=== PATIENT | female | born 1990 | race African-American/Black ===

== ENCOUNTER 2016-11-11 17:41 | Emergency (ER) | payer OTHER ==
[~2016-11-11] VITALS: Ht 170.2 cm; Wt 54.5 kg
[2016-11-11] MEDS ORDERED: CefTRIAXone SODIUM 1 GM/VIAL IM ONE (20:30)
[2016-11-11] MEDS ORDERED: AZITHROMYCIN 250 MG TABLET PO ONE (20:30)
[2016-11-11] MEDS ORDERED: LIDOCAINE HCL/PF 1% 2 ML VIAL IM ONE (20:30)
[2016-11-11 20:40] VITALS: BP 121/88
[2016-11-11 21:00] LABS: ANION GAP 10 mmol/L (8-16); CALCIUM, TOTAL 9.3 mg/dL (8.8-10.5); CARBON DIOXIDE 30 mmol/L (22-29); CHLORIDE 100 mmol/L (98-107); CREATININE 0.79 mg/dL (0.60-1.30); GLOMERULAR FILTR. RATE CALC > 60 mL/min (>60); POTASSIUM 3.4 mmol/L (3.5-5.1); SODIUM SERUM 140 mmol/L (136-145); UREA NITROGEN, BLOOD 8 mg/dL (7-18)
[2016-11-11 21:06] LABS: ALANINE AMINOTRANSFERASE 33 U/L (12-78); ALBUMIN 4.3 g/dL (3.4-5.0); ASPARTATE AMINOTRANSFERASE 21 U/L (15-37); BILIRUBIN,TOTAL 0.5 mg/dL (0.1-1.0); TOTAL PROTEIN, SERUM 8.3 g/dL (6.4-8.2)
== END 2016-11-11 21:27 | disposition home or self-care (01) ==
LOC: EMS 17:43
DX: A56.01 Chlamydial cystitis and urethritis (principal); F17.210 Nicotine dependence, cigarettes, uncomplicated
CPT/HCPCS: 36415; 80053; 96372; 99284; J0696; J3490

== ENCOUNTER 2017-10-13 13:19 | Emergency (ER) | payer OTHER ==
[~2017-10-13] VITALS: Ht 170.2 cm; Wt 56.8 kg
[2017-10-13 13:28] VITALS: BP 101/63
== END 2017-10-13 15:00 | disposition left against medical advice (07) ==
LOC: EMS 13:20
DX: M54.5 Low back pain (principal); Z53.21 Procedure and treatment not carried out due to patient leaving prior to being seen by health care provider

== ENCOUNTER → 2018-09-13 | Emergency (ER) | payer OTHER ==
[~2018-09-13] VITALS: Ht 167.6 cm; Wt 60.5 kg
[2018-09-13 15:59] LABS: BASOPHILS % (AUTO) 0.4 % (0.0-2.0); EOSINOPHILS % (AUTO) 0.6 % (1.0-6.0); HEMATOCRIT 34.5 % (36-46); HEMOGLOBIN 11.5 g/dL (12.0-16.0); LYMPHOCYTES # (AUTO) 1.8 K/uL (1.0-4.8); LYMPHOCYTES % (AUTO) 15.3 % (22.0-44.0); MEAN CORPUSCULAR HEMOGLOBIN 30.3 pg (26.0-34.0); MEAN CORPUSCULAR HGB CONC 33.3 G/dL (31.0-37.0); MEAN CORPUSCULAR VOLUME 91 fL (80-100); MONOCYTES # (AUTO) 0.6 K/uL (0.1-1.0); MONOCYTES % (AUTO) 5.2 % (2.0-9.0); NEUTROPHILS # (AUTO) 9.3 K/uL (1.8-7.7); NEUTROPHILS % (AUTO) 78.5 % (40.0-70.0); PLATELET COUNT (AUTO) 233 K/uL (150-450); RED CELL DISTRIBUTION WIDTH 13.1 % (11.5-14.5)
[2018-09-13 16:08] LABS: ANION GAP 4 mmol/L (8-16); CALCIUM, TOTAL 9.3 mg/dL (8.8-10.5); CARBON DIOXIDE 28 mmol/L (22-29); CHLORIDE 100 mmol/L (98-107); GLOMERULAR FILTR. RATE CALC > 60 mL/min (>60); GLUCOSE,RANDOM 86 mg/dL (70-110); POTASSIUM 3.7 mmol/L (3.5-5.1); SODIUM SERUM 132 mmol/L (136-145); UREA NITROGEN, BLOOD 7 mg/dL (7-18)
[2018-09-13 16:47] LABS: ALANINE AMINOTRANSFERASE 64 U/L (12-78); ALBUMIN 3.1 g/dL (3.4-5.0); ALKALINE PHOSPHATASE 41 U/L (46-116); ASPARTATE AMINOTRANSFERASE 31 U/L (15-37); BILIRUBIN,TOTAL 0.2 mg/dL (0.1-1.0); HCG,QUANTITATIVE 23917 mIU/mL (0-6); TOTAL PROTEIN, SERUM 7.2 g/dL (6.4-8.2)
[2018-09-13 17:40] VITALS: BP 111/79
[2018-09-13 18:22] LABS: APPEARANCE,URINE CLEAR (CLEAR); BILIRUBIN,URINE NEGATIVE (NEGATIVE); GLUCOSE, URINE (UA) NEGATIVE (NEGATIVE); KETONES,URINE NEGATIVE (NEGATIVE); LEUKOCYTE ESTERASE ,URINE NEGATIVE (NEGATIVE); NITRATE,URINE NEGATIVE (NEGATIVE); OCCULT BLOOD,URINE NEGATIVE (NEGATIVE); PH,URINE 6.5 (5.0-8.0); PROTEIN,URINE NEGATIVE (NEGATIVE)
== END | disposition home or self-care (01) ==
LOC: EMS 13:57
DX: O26.892 Other specified pregnancy related conditions, second trimester (principal); R10.30 Lower abdominal pain, unspecified; F32.9 Major depressive disorder, single episode, unspecified; F17.210 Nicotine dependence, cigarettes, uncomplicated; Z3A.18 18 weeks gestation of pregnancy
CPT/HCPCS: 76805; 86900; 87491; 87591

== ENCOUNTER 2018-10-07 23:40 | Emergency (ER) | payer OTHER | END 2018-10-08 00:30 | disposition left against medical advice (07) | LOC: EMS 23:42 | DX: Z53.21 Procedure and treatment not carried out due to patient leaving prior to being seen by health care provider (principal) ==

== ENCOUNTER 2018-11-29 23:57 | Emergency (ER) | payer OTHER ==
[~2018-11-29] VITALS: Ht 167.6 cm; Wt 75.0 kg
[2018-11-30] MEDS ORDERED: PREN-64 PO (00:18)
[2018-11-30 00:42] LABS: BASOPHILS % (AUTO) 0.2 % (0.0-2.0); EOSINOPHILS % (AUTO) 0.6 % (1.0-6.0); HEMATOCRIT 32.8 % (36-46); HEMOGLOBIN 10.9 g/dL (12.0-16.0); LYMPHOCYTES # (AUTO) 2.4 K/uL (1.0-4.8); LYMPHOCYTES % (AUTO) 20.4 % (22.0-44.0); MEAN CORPUSCULAR HEMOGLOBIN 30.8 pg (26.0-34.0); MEAN CORPUSCULAR HGB CONC 33.3 G/dL (31.0-37.0); MEAN CORPUSCULAR VOLUME 93 fL (80-100); MONOCYTES # (AUTO) 0.8 K/uL (0.1-1.0); MONOCYTES % (AUTO) 6.5 % (2.0-9.0); NEUTROPHILS # (AUTO) 8.5 K/uL (1.8-7.7); NEUTROPHILS % (AUTO) 72.3 % (40.0-70.0); PLATELET COUNT (AUTO) 197 K/uL (150-450); RED BLOOD CELL COUNT(AUTO) 3.54 MIL/uL (4.00-5.20); RED CELL DISTRIBUTION WIDTH 13.4 % (11.5-14.5)
[2018-11-30 00:49] LABS: ANION GAP 7 mmol/L (8-16); CALCIUM, TOTAL 9.2 mg/dL (8.8-10.5); CARBON DIOXIDE 27 mmol/L (22-29); CHLORIDE 102 mmol/L (98-107); CREATININE 0.65 mg/dL (0.60-1.30); GLOMERULAR FILTR. RATE CALC > 60 mL/min (>60); GLUCOSE,RANDOM 74 mg/dL (70-110); POTASSIUM 3.7 mmol/L (3.5-5.1); SODIUM SERUM 136 mmol/L (136-145); UREA NITROGEN, BLOOD 7 mg/dL (7-18)
[2018-11-30 01:05] LABS: OCCULT BLOOD,GASTRIC FLUID NEGATIVE (NEGATIVE)
[2018-11-30 01:20] VITALS: BP 124/70
[2018-11-30 01:20] LABS: ALANINE AMINOTRANSFERASE 20 U/L (12-78); ALBUMIN 2.8 g/dL (3.4-5.0); ALKALINE PHOSPHATASE 61 U/L (46-116); ASPARTATE AMINOTRANSFERASE 17 U/L (15-37); BILIRUBIN,TOTAL 0.3 mg/dL (0.1-1.0); HCG,QUANTITATIVE 12757 mIU/mL (0-6); LIPASE 143 U/L (73-393); TOTAL PROTEIN, SERUM 6.7 g/dL (6.4-8.2)
== END 2018-11-30 01:48 | disposition home or self-care (01) ==
LOC: EMS 23:58
DX: O21.2 Late vomiting of pregnancy (principal); O99.333 Smoking (tobacco) complicating pregnancy, third trimester; F32.9 Major depressive disorder, single episode, unspecified; Z3A.24 24 weeks gestation of pregnancy
CPT/HCPCS: 36415; 80053; 82271; 83690; 84702; 85025; 99283; G0480

== ENCOUNTER 2018-12-21 15:25 | Observation (INO) | payer OTHER ==
[~2018-12-21] VITALS: Ht 167.6 cm; Wt 78.9 kg
[~2018-12-21 15:25] MED LIST: PREN-64 PO
[2018-12-21 15:50] VITALS: BP 117/67
== END 2018-12-21 17:05 | disposition home or self-care (01) ==
LOC: 4S 15:25
PROVIDERS: ADMIT Obstetrics & Gynecology; ATTEND Obstetrics & Gynecology
DX: O36.8130 Decreased fetal movements, third trimester, not applicable or unspecified (principal); Z3A.32 32 weeks gestation of pregnancy
CPT/HCPCS: 76805; 81002; G0378

== ENCOUNTER 2019-01-11 14:11 | Observation (INO) | payer OTHER ==
[~2019-01-11] VITALS: Ht 167.6 cm; Wt 81.2 kg
[2019-01-30 21:02] VITALS: BP 108/66
[2019-01-30] MEDS ORDERED: ACETAMINOPHEN 325 MG TABLET PO ONE (21:15)
[2019-01-30] MEDS ORDERED: GENTAMICIN 120 MG/NACL ISO-OSM 100 ML IV ONE (21:15)
[2019-01-30] MEDS ORDERED: RINGERS SOLUTION,LACTATED 1,000 ML IV ONE ×2 (21:15→21:17)
[2019-01-30] MEDS ORDERED: ONDANSETRON HCL 4 MG/2 ML VIAL IVP ONE (21:15)
[2019-01-30] MEDS ORDERED: FERR-89 PO (21:30)
== END 2019-01-30 23:05 | disposition home or self-care (01) ==
LOC: 4S 01-30 19:55
PROVIDERS: ADMIT Obstetrics & Gynecology; ATTEND Obstetrics & Gynecology
DX: O26.893 Other specified pregnancy related conditions, third trimester (principal); R10.9 Unspecified abdominal pain; O99.89 Other specified diseases and conditions complicating pregnancy, childbirth and the puerperium; M54.9 Dorsalgia, unspecified; O21.2 Late vomiting of pregnancy; O99.283 Endocrine, nutritional and metabolic diseases complicating pregnancy, third trimester; E86.0 Dehydration; Z3A.38 38 weeks gestation of pregnancy
CPT/HCPCS: 81002; 87086; 96365; 96375; G0378; J1580; J2405; J7120

== ENCOUNTER 2021-10-29 23:59 | Emergency (ER) | payer OTHER ==
[~2021-10-29] VITALS: Ht 165.1 cm; Wt 59.1 kg
[~2021-10-29 23:59] MED LIST changes: +FERR325T27 PO
[2021-10-30] MEDS ORDERED: LIDOCAINE 1% 10 ML VIAL ID ONE (00:45)
[2021-10-30] MEDS ORDERED: HYDROCODONE/ACETAMINOPHEN 5-325 MG TABLET PO ONE (00:45)
[2021-10-30] MEDS ORDERED: SULFAMETHOX/TRIMETH DS 800-160 MG/TABLET PO ONE (00:45)
[2021-10-30] MEDS ORDERED: CEPHALEXIN MONOHYDRATE 500 MG CAPSULE PO ONE (00:45)
[2021-10-30] MEDS ORDERED: TRAM50TA4 PO (01:26)
[2021-10-30] MEDS ORDERED: SULF-261 PO (01:26)
[2021-10-30] MEDS ORDERED: CEPH-558 PO (01:26)
[2021-10-30 01:38] VITALS: BP 117/71
== END 2021-10-30 01:39 | disposition home or self-care (01) ==
LOC: EMS 23:59
DX: N61.1 Abscess of the breast and nipple (principal); F32.A Depression, unspecified; F17.210 Nicotine dependence, cigarettes, uncomplicated; Z87.42 Personal history of other diseases of the female genital tract; Z87.898 Personal history of other specified conditions
CPT/HCPCS: 10060; 99284; J3490

== ENCOUNTER 2022-06-28 19:16 | Emergency (ER) | payer OTHER ==
[~2022-06-28] VITALS: Ht 165.1 cm; Wt 54.5 kg
[~2022-06-28 19:16] MED LIST changes: +CEPH-558 PO; +SULF-261 PO; +TRAM-559 PO
[2022-06-28] MEDS ORDERED: MEDR150V13 IM (19:35)
[2022-06-28 20:08] VITALS: BP 127/87
[2022-06-28] MEDS ORDERED: KETOROLAC TROMETHAMINE 10 MG TABLET PO ONE (20:15)
[2022-06-28] MEDS ORDERED: AMOXICILLIN TRIHYDRATE 250 MG CAPSULE PO ONE (20:15)
[2022-06-28] MEDS ORDERED: HYDROCODONE/ACETAMINOPHEN 10-325 MG TABLET PO ONE (20:15)
== END 2022-06-28 20:29 | disposition home or self-care (01) ==
LOC: EMS 19:17
DX: K08.89 Other specified disorders of teeth and supporting structures (principal); F32.A Depression, unspecified; F17.210 Nicotine dependence, cigarettes, uncomplicated; F12.90 Cannabis use, unspecified, uncomplicated
CPT/HCPCS: 99284; Z7502; Z7610

== ENCOUNTER 2022-08-31 17:01 | Emergency (ER) | payer OTHER ==
[~2022-08-31] VITALS: Ht 162.6 cm; Wt 59.1 kg
[~2022-08-31 17:01] MED LIST changes: -CEPH-558 PO; -FERR325T27 PO; +MEDR150V13 IM; -PREN-64 PO; -SULF-261 PO; -TRAM-559 PO
[2022-08-31] MEDS ORDERED: KETOROLAC TROMETHAMINE 30 MG/ML VIAL IM ONE (18:00)
[2022-08-31 18:06] VITALS: BP 119/72
== END 2022-08-31 18:10 | disposition home or self-care (01) ==
LOC: EMS 17:11
DX: K08.89 Other specified disorders of teeth and supporting structures (principal); F32.A Depression, unspecified; N83.209 Unspecified ovarian cyst, unspecified side; F17.210 Nicotine dependence, cigarettes, uncomplicated; F12.90 Cannabis use, unspecified, uncomplicated
CPT/HCPCS: 99283; 96372; J1885